=== PATIENT | female | born 1950 | race Caucasian/White ===

== ENCOUNTER → 2016-09-26 | Day surgery (SDC) | payer MEDICARE, BC ==
[~2016-09-26] MED LIST: ALKA-SELTZER P1 EAC1 PO; ASPIRIN; ATENOLOL; ATENOLOL50 MG PO; BACLOFEN10 MG; DARVOCET-N 1001 TAB; K-DUR10 MEQ PO; KLONOPIN; LASIX20 MG PO; LEVAQUIN750 MG PO; LEVOTHYROXINE25 MCG PO; MICRO-K PO; NEXIUM PO; NORVASC10 MG PO; PRAVASTATIN SOD20 MG PO; PREMARIN; PROTONIX PO; TYLENOL325 M1 PO; ZOCOR20 MG PO
--- NOTE | ~2016-09-26 | OR ---
Unit #: [id number] #: [id number] Patient: HERO RICHARDSON [id number] [address] [place], [place] [address] [id number] O MR#: [id number] NAME: HERO RICHARDSON. ROOM: Date of Procedure: 09/26/2016 Admission Date: 09/26/2016 Surgeon: Jeff Bronson M.D. : 1950 Attending Physician: Jeff Bronson M.D. Referring Physician: Jeff Bronson M.D. Primary Care Physician: Edwin Houston Jr., M.D. OPERATIVE REPORT PREOPERATIVE DIAGNOSES The patient presented with history of gastroesophageal reflux, postprandial dyspepsia, and early satiety. These symptoms have been intermittent. In addition, she needs a surveillance colonoscopy having had history of colonic polyps in the past. PROCEDURES PERFORMED Upper gastrointestinal endoscopy and biopsy as well as colonoscopy with biopsies. POSTOPERATIVE DIAGNOSES 1. For upper endoscopy, completely normal examination up to third part of duodenum. Biopsies obtained from the deep descending duodenal folds to look for any evidence of partial villous atrophy or celiac disease. 2. For colonoscopy, completely normal examination up to cecum and terminal ileum. The quality of the prep was excellent. No polyps, diverticula, or hemorrhoids were seen. Multiple random colonic biopsies obtained from throughout the colon to rule out microscopic or collagenous colitis. RECOMMENDATIONS The patient will be started on pantoprazole 40 mg p.o. daily. She will be followed up in the office in 8 to 10 weeks' time. SEDATION USED MAC. DESCRIPTION OF PROCEDURE Following detailed explanation of potential risks and complications of an upper endoscopy and a colonoscopy, namely perforation, bleeding, and complications related to sedation, the patient was brought to GI lab and laid in the left lateral decubitus position. Lubricated tip of the Olympus video upper endoscope was passed through the bite block into the proximal esophagus under direct vision. The entire esophageal mucosa was examined and appeared normal. Z-line was nicely demarcated, there being no esophagitis or hiatus hernia. The scope was then advanced into the gastric cavity and the latter was insufflated. Mucosa of the fundus, body, and antrum examined and appeared unremarkable. Pylorus was intubated with visualization of the normal duodenal bulb and second and third part of the duodenum. Biopsies obtained from the deep descending duodenal folds to look for any evidence of partial villous atrophy or celiac disease. Upon withdrawal and retroflexion, incisura, cardia, and Unit #: [id number] #: [id number] Patient: HERO RICHARDSON curve examined and no additional findings noted. The scope was then withdrawn in the distal esophagus. The entire esophageal mucosa was examined all the way up to pharynx. No additional findings noted. The examination table was then turned by 180 degrees and the patient was positioned for a colonoscopy. A digital rectal examination was performed, which was normal. Lubricated tip of the Olympus video colonoscope was inserted through the anus and advanced under direct vision. The scope was advanced and passed up to sigmoid into descending colon. No diverticula were noticed in this area. The scope tip was then navigated all the way up to cecum with visualization of the ileocecal valve and the appendiceal orifice. Preparation was excellent with good visualization and photodocumentation was obtained. Last several inches of terminal ileum also visualized after intubation of the ileocecal valve and appeared normal. Successive segments of the colonic mucosa were examined upon withdrawal and appeared unremarkable. There being no polyps, mass lesions, AVMs, or diverticula. The patient did not have any hemorrhoids at anal verge. The scope was then withdrawn. The patient returned to recovery area. She tolerated the procedure without any postprocedure complications. Dictated by.Isaura. Get Palomares/addie TD: 09/26/2016 22:35 JOB #: [id number] OPERATIVE REPORT Page 1 of 1 X Jeff Bronson MD X PROCEDURE OPERATIVE NOTE
== END | disposition home or self-care (01) ==
LOC: COPS 06:05
DX: Z12.11 Encounter for screening for malignant neoplasm of colon (principal); K29.80 Duodenitis without bleeding; E89.0 Postprocedural hypothyroidism; K21.9 Gastro-esophageal reflux disease without esophagitis; I10 Essential (primary) hypertension; M19.90 Unspecified osteoarthritis, unspecified site; Z90.710 Acquired absence of both cervix and uterus; Z90.49 Acquired absence of other specified parts of digestive tract; Z98.41 Cataract extraction status, right eye; Z98.42 Cataract extraction status, left eye; Z87.01 Personal history of pneumonia (recurrent); Z88.6 Allergy status to analgesic agent; Z88.8 Allergy status to other drugs, medicaments and biological substances; Z88.0 Allergy status to penicillin; Z86.010 Personal history of colon polyps
CPT/HCPCS: 88305; J2250

== ENCOUNTER 2016-12-06 12:44 | Emergency (ER) | payer MEDICARE, BC ==
--- NOTE | ~2016-12-06 | US134 ---
[facility] A Service [facility] RADIOLOGY TEXT RESULTS PATIENT: HERO RICHARDSON LOCATION: [facility] : [birth year] UNIT #: [id number] AGE: [address]: Faraz Ferrera MD SEX: F ORDER DR: [id number] [facility] [address] [place], [place] [address] [id number] E MR#: [id number] Acc #: [id number] NAME: HERO RICHARDSON. : 1950 SEX: F STUDY DATE/TIME: 12/06/2016 18:30 UNIT: [facility] ROOM: STUDY DESCRIPTION: Transvaginal Attending Physician: Faraz Ferrera M.D. Ordering Physician: [facility] Primary Care Physician: Edwin Houston Jr., M.D. MEDICAL IMAGING REPORT This report is preliminary unless electronic signature is present EXAM Pelvic ultrasound INDICATIONS Right lower quadrant abdominal pelvic pain for the past week. TECHNIQUE Alfonso-scale and Doppler imaging of the pelvis via a transvaginal approach. COMPARISON None. FINDINGS Previous hysterectomy. Ovaries are not seen. There is a trace amount of fluid in the pelvis. No obvious mass. IMPRESSION 1. Previous hysterectomy. Ovaries are not well seen. No obvious mass in the pelvis. 2. Small amount of fluid in the pelvis. Dictated by... Gino Ann M.D. THIS IS AN ELECTRONICALLY VERIFIED REPORT Gino Ann M.D. at 12/07/2016 2:31 PM EED/pcl TD: 12/06/2016 23:48 JOB #: [id number] [facility] A Service [facility] RADIOLOGY TEXT RESULTS PATIENT: HERO RICHARDSON LOCATION: [facility] : [birth year] UNIT #: [id number] AGE: [address]: Faraz Ferrera MD SEX: F ORDER DR: MEDICAL IMAGING REPORT Page 1 of 1 COPY
--- NOTE | ~2016-12-06 | CT4 ---
[facility] A Service of [facility] RADIOLOGY TEXT RESULTS PATIENT: HERO RICHARDSON LOCATION: [facility] : 50 UNIT #: [id number] AGE: [address]: Faraz Ferrera MD SEX: F ORDER DR: [id number] [facility] [address] [place], [place] [address] [id number] E MR#: [id number] Acc #: [id number] NAME: HERO RICHARDSON. : 1950 SEX: F STUDY DATE/TIME: 12/06/2016 16:34 UNIT: [facility] ROOM: STUDY DESCRIPTION: CT Abd and Pelv Wo Cont Attending Physician: Faraz Ferrera M.D. Ordering Physician: Faraz Ferrera M.D. Primary Care Physician: Edwin Houston Jr., M.D. MEDICAL IMAGING REPORT This report is preliminary unless electronic signature is present EXAM CT of the abdomen and pelvis without contrast media, 12/06/16 COMPARISON Study is dated 12/10/14. HISTORY Nausea, vomiting, diarrhea and left lower quadrant pain since December 02. TECHNIQUE Axial imaging of the abdomen and pelvis was performed without contrast media. This CT exam was performed with one or more of the following radiation dose reduction techniques: Automatic exposure control, adjustment of mA and/or kV according to patient size, and iterative reconstruction. FINDINGS Scans through the lung bases show evidence of chronic underlying lung disease with bronchiectasis and chronic scarring. There is a small dependent pericardial effusion. This is present previously. Scans through the liver parenchyma shows evidence of mild hepatic steatosis. The gallbladder is absent. Adrenal glands are normal. Pancreas is normal. Gallbladder is absent. No evidence of renal stones or hydronephrosis. The ureters are identified to the bladder and appear normal. There is mild small bowel dilatation. The colon is decompressed. The terminal ileum is normal. The appendix is not clearly identified. Uterus is surgically absent. There is a fluid-density collection in the right lower quadrant measuring 6.4 x 4.6 x 6.7 cm. There is no surrounding inflammation. The bladder is normal. There is no evidence of significant colon wall thickening. CONCLUSION 1. Small pericardial effusion, stable. [facility] A Service of [facility] RADIOLOGY TEXT RESULTS PATIENT: HERO RICHARDSON LOCATION: [facility] : [birth year] UNIT #: [id number] AGE: [address]: Faraz Ferrera MD SEX: F ORDER DR: 2. Mild hepatic steatosis. 3. Status post cholecystectomy and hysterectomy. 4. Fluid collection in the right lower quadrant adjacent to the cecum measuring 6.4 x 6.6 x 4.6 cm without any adjacent inflammation. Patient's old scans are reviewed and the appendix is not clearly identified on previous studies. There is no evidence of adjacent diverticulitis. There is some small bowel dilatation, which could represent a mild ileus. The differential considerations for this fluid-density collection should include, obviously, ovarian origin. I do not have a history of a prior appendectomy and a mucocele appendix is in the differential, as well. Appendicitis is a consideration, but I think this is less likely given the nonvisualization previously and the lack of any adjacent inflammation. 5. No convincing evidence of diverticulitis. Dictated by... Edwin Quesada M.D. THIS IS AN ELECTRONICALLY VERIFIED REPORT Edwin Quesada M.D. at 12/07/2016 5:11 PM HERON/carter TD: 12/06/2016 22:25 JOB #: [id number] MEDICAL IMAGING REPORT Page 1 of 1 COPY
--- NOTE | ~2016-12-06 | US134 ---
[facility] A Service [facility] RADIOLOGY TEXT RESULTS PATIENT: HERO RICHARDSON LOCATION: [facility] : 50 UNIT #: [id number] AGE: [address]: Faraz Ferrera MD SEX: F ORDER DR: [id number] [facility] [address] [place], [place] [address] [id number] E MR#: [id number] Acc #: [id number] NAME: HERO RICHARDSON. : 1950 SEX: F STUDY DATE/TIME: 12/06/2016 18:14 UNIT: [facility] ROOM: STUDY DESCRIPTION: Transvaginal Attending Physician: Faraz Ferrera M.D. Ordering Physician: Faraz Ferrera M.D. Primary Care Physician: Edwin Houston Jr., M.D. MEDICAL IMAGING REPORT This report is preliminary unless electronic signature is present EXAM Pelvic ultrasound INDICATIONS Right lower quadrant abdominal and pelvic pain for the past week. PROCEDURE Alfonso-scale and Doppler imaging of the pelvis via transvaginal approach. COMPARISON CT from 12/06/16 FINDINGS Previous hysterectomy. The ovaries are not seen. There is bowel gas in the pelvis. No appreciable pelvic mass or fluid. IMPRESSION 1. Previous hysterectomy. 2. The ovaries are not well seen on this study. 3. Pelvis imaging is degraded by bowel gas. No obvious mass or fluid. Dictated by... Gino Ann M.D. THIS IS AN ELECTRONICALLY VERIFIED REPORT Gino Ann M.D. at 12/07/2016 2:31 PM EED/psc TD: 12/06/2016 23:55 JOB #: [id number] MEDICAL IMAGING REPORT [facility] A Service [facility] RADIOLOGY TEXT RESULTS PATIENT: HERO RICHARDSON LOCATION: [facility] : 50 UNIT #: [id number] AGE: [address]: Faraz Ferrera MD SEX: F ORDER DR: Page 1 of 1 COPY
[2016-12-06 13:50] LABS: BASOPHIL% 0.4 % (0-2.5); EOSINOPHIL% 0.3 % (0.0-7.0); HEMATOCRIT 43.1 % (35.0-45.0); HEMOGLOBIN 14.4 gm/dL (12.0-16.0); LYMPHOCYTE# 1.6 X10e3 (1.0-3.5); LYMPHOCYTE% 13.3 % (17.0-45.0); MEAN CELL VOLUME 92.1 FL (83-96); MEAN CORPUSCULAR HEMOGLOBIN 30.8 PG (28-34); MEAN CORPUSCULAR HGB CONC 33.4 g/dL (30-36); MEAN PLATELET VOLUME 7.7 FL (6.5-11.5); MONOCYTE# 0.6 X10e3 (0-1.0); MONOCYTE% 5.1 % (3.0-12.0); NEUTROPHIL% 80.9 % (40-75); PLATELET COUNT 380 X10e3 (140-420); RED BLOOD COUNT 4.68 X10e (3.90-5.30); RED CELL DISTRIBUTION WIDTH 14.5 % (11.0-15.5); WHITE BLOOD COUNT 12.3 X10e3 (4.0-10.5)
[2016-12-06 13:51] LABS: DIFF IND NO
[2016-12-06 14:11] LABS: ALBUMIN SERUM 3.9 g/dL (3.5-5.0); BILIRUBIN, DIRECT 0.1 mg/dL (0.0-0.2); BILIRUBIN,INDIRECT 0.6 mg/dL (0.0-0.9); BILIRUBIN,TOTAL 0.7 mg/dL (0.2-2.0); BUN/CREATININE RATIO 11.66; CALCIUM SERUM 9.3 mg/dL (8.4-10.2); CREATININE SERUM 1.2 mg/dL (0.6-1.4); GLOM FILT RATE Estimated 47.1 mL/min (>60); POTASSIUM 3.7 mmol/L (3.5-5.1); PROTEIN TOTAL SERUM 7.5 g/dL (6.0-8.3)
== END 2016-12-06 21:33 | disposition hospice, home (50) ==
LOC: CED 12:44 → CFTX 15:03 → CED 15:03
DX: R10.9 Unspecified abdominal pain (principal); R11.2 Nausea with vomiting, unspecified; Z90.49 Acquired absence of other specified parts of digestive tract; Z90.710 Acquired absence of both cervix and uterus; Z88.0 Allergy status to penicillin; Z88.5 Allergy status to narcotic agent; Z88.8 Allergy status to other drugs, medicaments and biological substances; Z79.899 Other long term (current) drug therapy
CPT/HCPCS: 74176; 76830; 80048; 80076; 83690; 85025; 96361; 96372; 96374; 99285; J0500; J1170; J2405

== ENCOUNTER 2016-12-28 12:09 | Emergency (ER) | payer MEDICARE, BC ==
--- NOTE | ~2016-12-28 | CT71 ---
[facility] A Service of [facility] RADIOLOGY TEXT RESULTS PATIENT: HERO RICHARDSON LOCATION: [facility] : 50 UNIT #: [id number] AGE: [address]: Tomasa Schneider MD SEX: F ORDER DR: [id number] [facility] [address] [place], [place] [address] [id number] E MR#: [id number] Acc #: [id number] NAME: HERO RICHARDSON. : 1950 SEX: F STUDY DATE/TIME: 12/28/2016 13:49 UNIT: [facility] ROOM: STUDY DESCRIPTION: CT Head Wo Contrast Attending Physician: Tomasa Schneider M.D. Ordering Physician: Tomasa Schneider M.D. Primary Care Physician: Edwin Houston Jr., M.D. MEDICAL IMAGING REPORT This report is preliminary unless electronic signature is present EXAM Head CT no contrast 12/28/2016 PROCEDURE Axial unenhanced head CT. This CT exam was performed with one or more of the following radiation dose reduction techniques: automatic exposure control, adjustment of mA and/or kV according to patient size, and iterative reconstruction. HISTORY Left facial weakness and tingling paresthesias since 7:00 p.m. on December 27. FINDINGS There is no intracranial hemorrhage or mass. There is no hydrocephalus or extraaxial fluid collection. The brain is structurally normal. There is some minimal nonspecific white matter change but not atypical for age. The extracranial soft tissues are unremarkable. The skull base and calvarium are normal. IMPRESSION Minimal nonspecific white matter change, not unusual for age, no acute abnormality. Otherwise negative unenhanced head CT. Dictated by... Gael Lee M.D. THIS IS AN ELECTRONICALLY VERIFIED REPORT Gael Lee M.D. at 12/30/2016 5:30 PM LAVERN/adonis TD: 12/28/2016 15:16 [facility] A Service of [facility] RADIOLOGY TEXT RESULTS PATIENT: HERO RICHARDSON [id number] : 50 UNIT #: [id number] AGE: [address]: Tomasa Schneider MD SEX: F ORDER DR: JOB #: [id number] MEDICAL IMAGING REPORT Page 1 of 1 COPY
[2016-12-28 13:27] LABS: BASOPHIL% 0.7 % (0-2.5); EOSINOPHIL# 0.1 X10e3 (0-0.7); HEMATOCRIT 36.6 % (35.0-45.0); HEMOGLOBIN 12.4 gm/dL (12.0-16.0); LYMPHOCYTE# 1.8 X10e3 (1.0-3.5); LYMPHOCYTE% 27.8 % (17.0-45.0); MEAN CELL VOLUME 91.3 FL (83-96); MEAN CORPUSCULAR HEMOGLOBIN 30.9 PG (28-34); MEAN CORPUSCULAR HGB CONC 33.9 g/dL (30-36); MEAN PLATELET VOLUME 7.7 FL (6.5-11.5); MONOCYTE# 0.4 X10e3 (0-1.0); MONOCYTE% 6.5 % (3.0-12.0); NEUTROPHIL# 4.1 X10e3 (1.5-7.1); PLATELET COUNT 353 X10e3 (140-420); RED BLOOD COUNT 4.01 X10e (3.90-5.30); RED CELL DISTRIBUTION WIDTH 13.7 % (11.0-15.5); WHITE BLOOD COUNT 6.5 X10e3 (4.0-10.5)
[2016-12-28 13:30] LABS: DIFF IND NO
[2016-12-28 13:57] LABS: PARTIAL THROMBOPLASTIN TIME 24.7 SECONDS (23.5-31.3); PROTHROMBIN TIME (PATIENT) 10.6 SECONDS (10.0-11.7)
[2016-12-28 14:02] LABS: ALBUMIN SERUM 3.7 g/dL (3.5-5.0); ALKALINE PHOSPHATASE 65 U/L (32-92); ALT (SGPT) 15 U/L (10-40); AST (SGOT) 18 U/L (10-42); BILIRUBIN, DIRECT <0.1 mg/dL (0.0-0.2); BILIRUBIN,INDIRECT 0.3 mg/dL (0.0-0.9); BILIRUBIN,TOTAL 0.4 mg/dL (0.2-2.0); BLOOD UREA NITROGEN 14 mg/dL (9-23); CALCIUM SERUM 8.8 mg/dL (8.4-10.2); CARBON DIOXIDE 29 mmol/L (22-31); CHLORIDE 105 mmol/L (100-111); GLOM FILT RATE Estimated 58.7 mL/min (>60); GLUCOSE FASTING 92 mg/dL (70-110); POTASSIUM 3.1 mmol/L (3.5-5.1); PROTEIN TOTAL SERUM 6.8 g/dL (6.0-8.3); SODIUM 138 mmol/L (135-145)
== END 2016-12-28 15:00 | disposition home or self-care (01) ==
LOC: CED 12:09
PROVIDERS: Student in an Organized Health Care Education/Training Program
DX: E87.6 Hypokalemia (principal); R20.9 Unspecified disturbances of skin sensation; I10 Essential (primary) hypertension; Z88.8 Allergy status to other drugs, medicaments and biological substances; Z88.0 Allergy status to penicillin; Z88.5 Allergy status to narcotic agent
CPT/HCPCS: 70450; 80048; 80076; 85025; 85610; 85652; 85730; 86140; 99285

== ENCOUNTER → 2017-01-04 | Outpatient (CLI) | payer MEDICARE, BC ==
--- NOTE | ~2017-01-04 | NM19 ---
[facility] A Service of [facility] RADIOLOGY TEXT RESULTS PATIENT: HERO RICHARDSON LOCATION: [facility] : 50 UNIT #: [id number] AGE: [address]: William Beckett MD SEX: F ORDER DR: [id number] [facility] [address] [place], [place] [address] [id number] O MR#: [id number] Acc #: [id number] NAME: HERO RICHARDSON. : 1950 SEX: F STUDY DATE/TIME: 01/04/2017 7:11 UNIT: [facility] ROOM: STUDY DESCRIPTION: NM Gastric Emptying Study Attending Physician: William Beckett Jr., M.D. Referring Physician: William Beckett Jr., M.D. Ordering Physician: William Beckett Jr., M.D. Primary Care Physician: Edwin Houston Jr., M.D. MEDICAL IMAGING REPORT This report is preliminary unless electronic signature is present EXAM Gastric emptying scan 01/04/2017. HISTORY Abdominal distension, bloated abdomen, diarrhea and gastroparesis, nausea and vomiting, symptoms for 4 weeks. FINDINGS The patient ingested 563 uCi of technetium 99m tagged sulfur colloid in eggs. Images of the upper abdomen were obtained for 90 minutes. The gastric half-emptying time was calculated to be 71 minutes (normal is between 65 and 90 minutes). IMPRESSION Normal gastric half emptying time of 71 minutes. Dictated by... Boni Mayo M.D. THIS IS AN ELECTRONICALLY VERIFIED REPORT Boni Mayo M.D. at 01/06/2017 8:02 AM KRT/mindi TD: 01/04/2017 13:33 JOB #: [id number] MEDICAL IMAGING REPORT Page 1 of 1 COPY
== END | disposition home or self-care (01) ==
LOC: CNUC 06:24
DX: K58.9 Irritable bowel syndrome, unspecified (principal); R14.0 Abdominal distension (gaseous); R19.7 Diarrhea, unspecified; K31.84 Gastroparesis; R11.2 Nausea with vomiting, unspecified; Z87.898 Personal history of other specified conditions
CPT/HCPCS: 78264; A9541

== ENCOUNTER 2017-02-03 10:52 | Emergency (ER) | payer MEDICARE, BC ==
[~2017-02-03] VITALS: Ht 165.1 cm; Wt 76.7 kg
--- NOTE | ~2017-02-03 | CT4 ---
[facility] A Service of [facility] RADIOLOGY TEXT RESULTS PATIENT: HERO RICHARDSON LOCATION: [facility] : 50 UNIT #: [id number] AGE: [address]: Carlyn Isabel MD SEX: F ORDER DR: [id number] [facility] [address] [place], [place] [address] [id number] E MR#: [id number] Acc #: [id number] NAME: HERO RICHARDSON. : 1950 SEX: F STUDY DATE/TIME: 02/03/2017 14:24 UNIT: [facility] ROOM: STUDY DESCRIPTION: CT Abd and Pelv Wo Cont Attending Physician: Carlyn Isabel M.D. Ordering Physician: Carlyn Isabel M.D. Primary Care Physician: Edwin Houston Jr., M.D. MEDICAL IMAGING REPORT This report is preliminary unless electronic signature is present EXAM CT of the abdomen and pelvis without contrast HISTORY Abdominal pain and swelling. Nausea and vomiting since December 2016. TECHNIQUE Axial 3 mm images were obtained through the abdomen and pelvis without oral or IV contrast. This CT exam was performed with one or more of the following radiation dose reduction techniques: automatic exposure control, adjustment of mA and/or kV according to patient size, and iterative reconstruction. COMPARISON STUDIES 12/06/2016. FINDINGS Both lung bases are clear, except for linear subsegmental atelectasis in the left base versus scarring. The gallbladder has been removed. The liver, spleen, pancreas, adrenal glands and kidneys are normal. There is a tiny pericardial effusion. The aorta is normal in size and there is no adenopathy. The bowel appears normal. The terminal ileum appears normal. The appendix not seen. The previous study showed a fluid collection abutting the cecum that possibly could have originated from the appendix but that has resolved. Bowel is normal. The uterus has been removed. There are no adnexal masses. Bones are unremarkable. IMPRESSION 1. The fluid collection adjacent to the cecum noted 12/06/2016 has resolved. 2. On today's study, the appendix is not visible but [facility] RADIOLOGY TEXT RESULTS PATIENT: HERO RICHARDSON LOCATION: [facility] : 50 UNIT #: [id number] AGE: [address]: Carlyn Isabel MD SEX: F ORDER DR: evidence of appendicitis. 3. Previous cholecystectomy and hysterectomy. 4. Otherwise, normal. Dictated by... Sid Hutson M.D. THIS IS AN ELECTRONICALLY VERIFIED REPORT Sid Hutson M.D. at 02/04/2017 6:07 AM FEL/pcl TD: 02/03/2017 20:03 JOB #: [id number] MEDICAL IMAGING REPORT Page 1 of 1 COPY
[2017-02-03 13:01] LABS: BASOPHIL% 0.1 % (0-2.5); DIFF IND YES; EOSINOPHIL% 0.2 % (0.0-7.0); HEMATOCRIT 41.4 % (35.0-45.0); LYMPHOCYTE# 1.7 X10e3 (1.0-3.5); LYMPHOCYTE% 10.7 % (17.0-45.0); MEAN CELL VOLUME 92.7 FL (83-96); MEAN CORPUSCULAR HEMOGLOBIN 31.3 PG (28-34); MEAN CORPUSCULAR HGB CONC 33.8 g/dL (30-36); MONOCYTE# 0.8 X10e3 (0-1.0); MONOCYTE% 4.8 % (3.0-12.0); NEUTROPHIL# 13.1 X10e3 (1.5-7.1); NEUTROPHIL% 84.2 % (40-75); PLATELET COUNT 446 X10e3 (140-420); RED BLOOD COUNT 4.46 X10e (3.90-5.30); WHITE BLOOD COUNT 15.5 X10e3 (4.0-10.5)
[2017-02-03 13:13] LABS: PLATELET ESTIMATE INCREASED (NORMAL); RBC NORMAL YES
[2017-02-03 13:35] LABS: BILIRUBIN, DIRECT 0.1 mg/dL (0.0-0.2); BILIRUBIN,INDIRECT 0.6 mg/dL (0.0-0.9); BILIRUBIN,TOTAL 0.7 mg/dL (0.2-2.0); CALCIUM SERUM 9.3 mg/dL (8.4-10.2); GLOM FILT RATE Estimated 58.7 mL/min (>60); POTASSIUM 3.5 mmol/L (3.5-5.1); PROTEIN TOTAL SERUM 7.7 g/dL (6.0-8.3)
[2017-02-03 14:15] LABS: URINE SOURCE CLEAN CATCH
[2017-02-03 14:21] LABS: URINE APPEARANCE CLOUDY; URINE BILIRUBIN NEG (NEG); URINE BLOOD NEG (NEG); URINE COLOR YELLOW; URINE GLUCOSE NEG (NEG); URINE KETONE TRACE (NEG); URINE LEUKOCYTE ESTERASE 1+ (NEG); URINE NITRATE NEG (NEG); URINE PH 5.5 (5-8); URINE PROTEIN TRACE (NEG); URINE SPECIFIC GRAVITY 1.027 (1.003-1.035); URINE UROBILINOGEN 0.2 MG/DL (NEG)
[2017-02-03 14:24] LABS: CULTURE INDICATED? YES; URINE BACTERIA AUWI 2+ (NEGATIVE); URINE SQUAMOUS EPITHELIAL CELL MOD /[HPF]
== END 2017-02-03 16:15 | disposition home or self-care (01) ==
LOC: CED 10:52
PROVIDERS: Emergency Medicine
DX: N39.0 Urinary tract infection, site not specified (principal); R19.7 Diarrhea, unspecified; I10 Essential (primary) hypertension; Z88.5 Allergy status to narcotic agent; Z88.0 Allergy status to penicillin; Z88.8 Allergy status to other drugs, medicaments and biological substances
CPT/HCPCS: 36415; 74176; 80048; 80076; 81003; 83690; 85025; 87086; 96361; 96374; 99284; J2405